=== PATIENT | female | born 1960 | race Caucasian/White ===

== ENCOUNTER → 2019-01-30 | Outpatient (CLI) | payer OTHER, BC ==
[~2019-01-30] MED LIST: AZELASTINE137 MCG/0. NS; CHILDREN'S ASPI81 M1 PO; CLIMARA1 EAC2; CRESTOR5 MG PO; DILTIAZEM HCL90 MG PO; FISH OIL 1,001000 M2; FLONASE 0.05%50 MCG NASAL; SUDAFED PE10 M2 PO; VITAMIN D2000 UNIT PO; ZYRTEC10 M4 PO
== END | disposition home or self-care (01) ==
LOC: LITH 05:43
DX: N20.0 Calculus of kidney (principal); Z53.8 Procedure and treatment not carried out for other reasons; I10 Essential (primary) hypertension; M19.90 Unspecified osteoarthritis, unspecified site; Z87.442 Personal history of urinary calculi; Z96.652 Presence of left artificial knee joint; Z96.641 Presence of right artificial hip joint; Z79.82 Long term (current) use of aspirin
CPT/HCPCS: 50010